=== PATIENT | male | born 1975 | race Caucasian/White ===

== ENCOUNTER 2021-01-07 19:27 | Inpatient (IN) ==
--- NOTE | 2021-01-07 19:47 | Emergency Department Note ---
SOB HPI General Chief Complaint: Shortness of Breath/Dyspnea Stated Complaint: SOB, covid exposure Time Seen by Provider: 01/07/21 19:31 Source: patient Mode of arrival: ambulatory Limitations: no limitations History of Present Illness HPI Narrative: Narrative: 45 yo M w/ h/o sarcoidosis on 10mg prednisone daily chronically p/w SOB. He reports that he has had increasing SOB since , assoc'd w/ an occasional dry cough. He has not noted any CP, peripheral edema. No recent travel other than to [place], no immobilization. While he has dealt with sarcoidosis chronically, he has never felt like this in the past. He denies F/C, body aches, N/V/D. He is fully vaccinated against COVID19, but has been exposed to many people at work who have it. Related Data Home Medications Medication Instructions Recorded Confirmed eszopiclone 3 mg tablet 3 mg PO QHS 05/30/15 01/07/21 omega-3 fatty acids 1,000 mg 1,000 mg PO QDAY 05/30/15 01/07/21 capsule duloxetine 90 mg PO QHS 11/02/15 01/07/21 cholecalciferol (vitamin D3) 50 2,000 unit PO QDAY 03/10/18 01/07/21 mcg (2,000 unit) capsule omeprazole 20 mg tablet,delayed 20 mg PO QDAY 07/23/18 01/07/21 release pregabalin 150 mg capsule 375 mg PO BID 08/11/18 01/07/21 risperidone 0.5 mg tablet 1 mg PO QHS 05/26/19 01/07/21 risperidone 0.5 mg tablet 2 mg PO BID tab 05/26/19 01/07/21 allopurinol 300 mg PO QDAY 01/07/21 01/07/21 amitriptyline 25 mg PO BID 01/07/21 01/07/21 hydrocodone-acetaminophen [[place]] 1 tab PO TID 01/07/21 01/07/21 methylphenidate HCl [[place]] 36 mg PO QAM 01/07/21 01/07/21 prednisone 10 mg PO QDAY 01/07/21 01/07/21 Previous Rx's Medication Instructions Recorded alendronate 70 mg tablet 70 mg PO QWEEK #14 tab 12/25/18 Allergies Allergy/AdvReac Type Severity Reaction Status Date / Time No Known Drug Allergies Allergy Verified 01/07/21 19:30 Review of Systems ROS ROS Narrative: Narrative: All systems ED: reviewed and negative except as stated. [facility] Narrative Patient History Narrative: Narrative: Medical/Surgical/Family History All Active Problems (Updated 01/08/21 @ 01:40 by Elliot Kelly MD) Acute dyspnea (Acute) Sarcoidosis (Acute) COVID-19 (Acute) Cardiomegaly (Acute) Hyponatremia (Acute) Pleural condition (Chronic) Chest pain (Acute) Diaphoresis (Acute) Sepsis (Acute) Hypoxemia (Chronic) Pain of left thumb (Chronic) Well adult exam (Chronic) Abnormal liver enzymes (Chronic) Other tenosynovitis of hand and wrist (Chronic) Reticulocytosis (Chronic) Pain in both feet (Chronic) Numbness and tingling of both lower extremities (Chronic) Urinary frequency (Chronic) Back pain (Chronic) Chronic cough (Chronic) Rhinorrhea (Chronic) Sore throat (Chronic) Double vision (Chronic) Weight loss (Chronic) Anorexia (Chronic) Hepatosplenomegaly (Chronic) Carpal tunnel syndrome (Chronic) Foot joint instability (Chronic) Sarcoidosis of lung (Chronic) Other instability, left foot (Chronic) Osteopenia (Chronic) Osteoporosis (Chronic) Plantar fasciitis (Chronic) Other synovitis and tenosynovitis, left hand (Chronic) Fatigue (Chronic) Pain in left finger(s) (Chronic) Umbilical pain (Chronic) Dyspnea (Chronic) Murmur, cardiac (Chronic) Decreased testosterone level (Chronic) Anger reaction (Chronic) Acute pain of left foot (Chronic) Thrombocytopenia (Chronic) Neuropathy, lumbosacral (radicular) (Chronic) Neuropathy (Chronic) Neurogenic claudication (Chronic) Lumbar spondylitis (Chronic) Leukopenia (Chronic) Hepatitis (Chronic) History of sinus surgery (Chronic) Sinusitis (Chronic) Disease of nasal cavity and sinuses (Chronic) Anxiety and depression (Chronic) Insomnia (Chronic) Lumbar back pain (Chronic) Abnormal serum enzyme level (Chronic) Chronic rhinitis (Chronic) GERD (gastroesophageal reflux disease) (Chronic) Antineoplastic chemotherapy induced pancytopenia (Chronic) Pancytopenia (Chronic) Splenomegaly (Chronic) Interstitial lung disease (Chronic) Shortness of breath (Chronic) Sarcoidosis (Chronic) Hypertriglyceridemia (Chronic) Parotitis (Chronic) Clostridium difficile colitis (Chronic) Neck pain (Chronic) Abdominal pain (Chronic) Paresthesia (Chronic) Skin tag (Chronic) Peripheral neuropathy (Chronic) Medical History (Updated 01/08/21 @ 01:40 by Elliot Kelly MD) Abdominal pain Abnormal liver enzymes Abnormal serum enzyme level Absent serum haptoglobin Acute pain of left foot Anger reaction Anorexia Antineoplastic chemotherapy induced pancytopenia Anxiety and depression Back pain Carpal tunnel syndrome Chronic cough Chronic rhinitis Clostridium difficile colitis Decreased testosterone level Disease of nasal cavity and sinuses Double vision Dyspnea Fatigue Foot joint instability GERD (gastroesophageal reflux disease) Hepatitis Hepatosplenomegaly Hypertriglyceridemia Hypoxemia Insomnia Interstitial lung disease Leukopenia Lumbar back pain Lumbar spondylitis MRSA pneumonia Murmur, cardiac Neck pain Neurogenic claudication Neuropathy Neuropathy, lumbosacral (radicular) Numbness and tingling of both lower extremities Osteopenia Osteoporosis Other instability, left foot Other synovitis and tenosynovitis, left hand Other tenosynovitis of hand and wrist Pain in both feet Pain in left finger(s) Pain of left thumb Pancytopenia Paresthesia Parotitis right Peripheral neuropathy Plantar fasciitis Pleural condition Reticulocytosis Rhinorrhea Sarcoidosis Sarcoidosis of lung Shortness of breath Sinusitis Skin tag Sore throat Splenomegaly Thrombocytopenia Umbilical pain Urinary frequency Weight loss Well adult exam Surgical History History of carpal tunnel release History of sinus surgery X2 unsucessful History of umbilical hernia repair Status post bronchoscopy with biopsy Family History Mother Diabetes mellitus Father Glaucoma Heart disease Social History Smoking Status: Never smoker Alcohol Intake Frequency: holiday/special occasion only Substance Use: does not use Exam Narrative Narrative: Narrative: General Limitations: no limitations General appearance: Present alert and in no apparent distress Head Head: Present atraumatic and normocephalic Eye Eye: Present normal appearance ENT ENT: Present other (O2 face mask in place) Neck Neck: Present normal inspection Chest Chest: Present normal inspection and symmetric chest wall rise Respiratory Respiratory: Present normal lung sounds bilaterally; Absent respiratory distress, rales/crackles, wheezes and stridor Cardiovascular Cardiovascular: Present regular rate, normal rhythm, +S1, +S2 and other (2+ B/L radial pulses); Absent systolic murmur and diastolic murmur Adbominal Abdominal: Present soft and normal bowel sounds; Absent distention and tenderness Extremities Extremities: Absent pedal edema Neurological Neurological: Present alert and oriented X3 Psychiatric Psychiatric: Present normal affect Skin Skin: Present warm (WNL) and dry Course Vital Signs Vital signs: Vital Signs Temperature 98.5 F 01/07/21 19:27 Pulse Rate 99 H 01/07/21 19:27 Respiratory Rate 22 01/07/21 19:27 Pulse Oximetry (%) 95 01/07/21 19:27 Temperature 98.7 F 01/07/21 23:55 Pulse Rate 84 01/08/21 01:01 Respiratory Rate 22 01/08/21 01:01 Blood Pressure 131/91 01/08/21 01:01 Pulse Oximetry (%) 95 01/08/21 01:01 MDM MDM Narrative Medical decision making narrative: Narrative: 45 yo M w/ h/o sarcoidosis on 10mg QD prednisone p/w SOB, and arrives w/ RA SaO2 in the 70s. DDx - COVID19, PE, PNA, sarcoidosis flare, CHF/myocarditis He presented in NAD, but w/ RA sats in the 70s, c/w a COVID happy hypoxic presentation. He was immediately started on supplemental O2 that was titrated up to 10L NRB to maintain sats in the 90s. His CXR showed cardiomegaly, interstitial disease, and B/L fluffy infiltrates suggestive of COVID19, which was then confirmed w/ a rapid swab. I d/w Dr Fitch, his office support clerk, who stated that pt had never had any cardiomegaly issues in the past. He agreed that a dose of 6mg dex was ideal, and stated that we should consider T/F to a facility that had inpt pulmonology. We began calling to find a hospital w/ a office support clerk and bed availability. I was finally able to speak w/ Dr Edson moody at [facility] in [place] and the hospitalist who did not feel that pulmonary services were not required as the only Tx option would be steroids and oxygen. They felt that local admission would be acceptable and he would need at most an auto wrecker, not a office support clerk, if he had any decompensation. By this point, pt had been titrated down to 1L and I felt that T/F for ICU care would not be required. I d/w the hospitalist and informed him of the discussions I had w/ pulmonolgy here and in [place], and let him know of the need for the pt to have an ECHO as well. He was agreeable to local admission. He requested that I give a dose of remdesivir. I d/w the pt and informed him of R/B/A and he wished to proceed w/ the medication. Lab Data Result diagrams: 01/07/21 19:45 01/07/21 19:45 Labs: Lab Results 01/07/21 01/07/21 01/07/21 Range/Units 19:45 19:45 19:45 WBC 2.3 L (4.5-11.0) K/mcL RBC 6.22 H (4.63-6.08) M/mcL Hgb 16.9 (13.7-17.5) g/dL Hct 53.5 H (40.1-51.0) % MCV 86.0 (80.0-100.0) fL MCH 27.2 (26.0-34.0) pg MCHC 31.6 (31.0-36.0) g/dL RDW 18.3 H (11.5-14.5) % Plt Count 79 L (140-440) K/mcL MPV (7.4-10.4) fL Neut % (Auto) 69.1 (38.0-78.0) % Lymph % (Auto) 20.9 (15.5-49.0) % [place] % (Auto) 9.6 (1.0-12.0) % Eos % (Auto) 0 (0.0-7.0) % Baso % (Auto) 0.4 (0.0-2.0) % Lymph # (Auto) 0.48 L (1.50-4.80) K/mcL [place] # (Auto) 0.22 (0.10-0.90) K/mcL Eos # (Auto) 0 (0.00-0.70) K/mcL Baso # (Auto) 0.01 (0.00-0.30) K/mcL Absolute Neutrophils 1.59 L (1.80-8.00) K/mcL ABG Methemoglobin (0.4-1.5) % VBG pH (7.32-7.42) U VBG pCO2 (41.0-51.0) mmHg VBG pO2 (25.0-40.0) mmHg VBG HCO3 (24.0-28.0) mmol/L VBG Total CO2 (25.0-29.0) mmol/L VBG O2 Saturation (40.0-70.0) % VBG Base Excess (-2-3) VBG Lactic Acid (0.5-2.0) mmol/L Carboxyhemoglobin (0.0-1.5) % THgb Total Hemoglobin (13.5-16.5) gm/Dl Sodium 131 L (133-145) mmol/L Potassium 3.9 (3.3-5.1) mmol/L Chloride 92 L (96-108) mmol/L Carbon Dioxide 24 (22-30) mmol/L Anion Gap 15.0 (8.0-16.0) BUN 13 (6-20) mg/dL Creatinine 1.4 H (0.7-1.2) mg/dL GFR Calculation 59 Glucose 92 (70-105) mg/dL Calcium 9.5 (8.6-10.4) mg/dL Total Bilirubin 0.7 (0.1-1.0) mg/dL AST 69 H (<40) U/L ALT 55 H (<40) U/L Alkaline Phosphatase 132 H (39-117) U/L CK-MB (CK-2) 3.7 (<6.7) ng/mL Troponin T (<0.03) ng/mL NT-Pro-B Natriuret Pep 65.9 (<125.0) pg/mL Total Protein 7.7 (5.9-8.4) gm/dL Albumin 4.3 (3.2-5.2) gm/dL Globulin 3.4 (2.2-3.7) gm/dL Albumin/Globulin Ratio 1.3 (1.0-2.3) 01/07/21 01/07/21 01/07/21 Range/Units 19:45 19:56 20:18 WBC (4.5-11.0) K/mcL RBC (4.63-6.08) M/mcL Hgb (13.7-17.5) g/dL Hct (40.1-51.0) % MCV (80.0-100.0) fL MCH (26.0-34.0) pg MCHC (31.0-36.0) g/dL RDW (11.5-14.5) % Plt Count (140-440) K/mcL MPV (7.4-10.4) fL Neut % (Auto) (38.0-78.0) % Lymph % (Auto) (15.5-49.0) % [place] % (Auto) (1.0-12.0) % Eos % (Auto) (0.0-7.0) % Baso % (Auto) (0.0-2.0) % Lymph # (Auto) (1.50-4.80) K/mcL [place] # (Auto) (0.10-0.90) K/mcL Eos # (Auto) (0.00-0.70) K/mcL Baso # (Auto) (0.00-0.30) K/mcL Absolute Neutrophils (1.80-8.00) K/mcL ABG Methemoglobin 0.1 L (0.4-1.5) % VBG pH 7.43 H (7.32-7.42) U VBG pCO2 39.4 L (41.0-51.0) mmHg VBG pO2 46.6 H (25.0-40.0) mmHg VBG HCO3 25.3 (24.0-28.0) mmol/L VBG Total CO2 26.5 (25.0-29.0) mmol/L VBG O2 Saturation 77.5 H (40.0-70.0) % VBG Base Excess 1 (-2-3) VBG Lactic Acid 1.2 (0.5-2.0) mmol/L Carboxyhemoglobin 6.1 H (0.0-1.5) % THgb Total Hemoglobin 15.8 (13.5-16.5) gm/Dl Sodium (133-145) mmol/L Potassium (3.3-5.1) mmol/L Chloride (96-108) mmol/L Carbon Dioxide (22-30) mmol/L Anion Gap (8.0-16.0) BUN (6-20) mg/dL Creatinine (0.7-1.2) mg/dL GFR Calculation Glucose (70-105) mg/dL Calcium (8.6-10.4) mg/dL Total Bilirubin (0.1-1.0) mg/dL AST (<40) U/L ALT (<40) U/L Alkaline Phosphatase (39-117) U/L CK-MB (CK-2) (<6.7) ng/mL Troponin T < 0.01 (<0.03) ng/mL NT-Pro-B Natriuret Pep (<125.0) pg/mL Total Protein (5.9-8.4) gm/dL Albumin (3.2-5.2) gm/dL Globulin (2.2-3.7) gm/dL Albumin/Globulin Ratio (1.0-2.3) ED POC Tests ED POC Tests: NGOZI - SARS Antigen Positive CC TIME Critical Care Time Total Critical Care Time: 45 Attestation: The very real possibility of disability or existed without emergent intervention. Organ systems at risk included CVS, pulmonary, FILAMENT TESTER. Interventions included O2 supplementation, steroids, specialty consultation. No procedures were required. Discharge Plan Patient/Caregiver Discharge Instructions Pt seen by SUPERVISOR PICKING CREW/PA only: No Clinical Impression: Acute dyspnea, Sarcoidosis, COVID-19, Cardiomegaly, Hyponatremia Patient Disposition: Xfer As Inpt ([facility]) Condition: Fair Discharge Date/Time: 01/07/21 23:45 Discharge Location: [facility]
[2021-01-07 20:39] LABS: ABG Methemoglobin 0.1 % (0.4-1.5); Total Hemoglobin 15.8 gm/Dl (13.5-16.5); VBG Base Excess 1 (-2-3); VBG HCO3 25.3 mmol/L (24.0-28.0); VBG Oxygen Saturation 77.5 % (40.0-70.0); VBG PCO2 39.4 mmHg (41.0-51.0); VBG PH 7.43 U (7.32-7.42); VBG PO2 46.6 mmHg (25.0-40.0); VBG Total CO2 26.5 mmol/L (25.0-29.0)
[2021-01-07 21:06] LABS: ALT/SGPT 55 U/L (<40); AST/SGOT 69 U/L (<40); Albumin 4.3 gm/dL (3.2-5.2); Albumin/Globulin Ratio 1.3 (1.0-2.3); Alkaline Phosphatase 132 U/L (39-117); Bilirubin,Total 0.7 mg/dL (0.1-1.0); Blood Urea Nitrogen 13 mg/dL (6-20); Calcium 9.5 mg/dL (8.6-10.4); Carbon Dioxide 24 mmol/L (22-30); Chloride 92 mmol/L (96-108); Globulin 3.4 gm/dL (2.2-3.7); Glomerular Filtration Rate 59; Glucose 92 mg/dL (70-105)
[2021-01-07 21:16] LABS: Basophils # (Auto) 0.01 K/mcL (0.00-0.30); Basophils % (Auto) 0.4 % (0.0-2.0); Eosinophils # (Auto) 0 K/mcL (0.00-0.70); Eosinophils % (Auto) 0 % (0.0-7.0); Hematocrit 53.5 % (40.1-51.0); Hemoglobin 16.9 g/dL (13.7-17.5); Lymphocytes # (Auto) 0.48 K/mcL (1.50-4.80); Lymphocytes % (Auto) 20.9 % (15.5-49.0); Mean Corpuscular HGB Conc 31.6 g/dL (31.0-36.0); Monocytes # (Auto) 0.22 K/mcL (0.10-0.90); Monocytes % (Auto) 9.6 % (1.0-12.0); Neutrophils % (Auto) 69.1 % (38.0-78.0); Platelet Count 79 K/mcL (140-440); RBC 6.22 M/mcL (4.63-6.08); Red Cell Distribution Width 18.3 % (11.5-14.5); WBC 2.3 K/mcL (4.5-11.0)
[2021-01-07] MEDS ORDERED: DEXAMETHASONE 10 MG/ML VIAL IV ONE (21:33)
[2021-01-07 22:40] LABS: Creatine Kinase MB 3.7 ng/mL (<6.7); proBNP 65.9 pg/mL (<125.0)
[2021-01-07] MEDS ORDERED: REMDESIVIR 200 MG in 0.9 % SODIUM CHLORIDE 250 ML IV ONE (23:04)
[2021-01-08] MEDS: 0.9 % SODIUM CHLORIDE 10 ML SYRINGE IV SCH ×8 (00:10→22:00)
--- NOTE | 2021-01-08 06:19 | XRay Report ---
CLINICAL INFORMATION: sob, hypoxia. History of sarcoidosis COMPARISON: 11/09/2018 FINDINGS: The heart is equivocally enlarged, but accentuated by portable technique, suboptimal inspiratory result, lordotic positioning and left rotation. Mild mediastinal widening and mild bilateral hilar enlargement could indicate recurrent adenopathy. Pulmonary vasculature is normal. Moderate interstitial disease has progressed in both mid and lower lungs. No effusions IMPRESSION: Mild hilar enlargement and mediastinal widening which suspect represents adenopathy-possibly related recurrent sarcoidosis. Moderate interstitial disease in both mid and lower lungs has progressed which could indicate inflammation related to sarcoidosis or superimposed infection. Consider chest CT for more specific evaluation. Interpreted and Authenticated by: Camilo Rodriguez 01/08/21
--- NOTE | 2021-01-08 08:10 | Internal Med History&Physical ---
HPI History of Present Illness Patient information: Note initiated : 01/08/21 at 7:57 am Service Date, if different from initiated Date: [] Patient: Raleigh Grant a 45 y/o M admitted on 01/07/21 for SOB, covid exposure. Chief Complaint: [] History of present illness: Mr. Grant is a 45 year old M [facility] ED with sore throat runny nose shortness of breath and multiple Covid exposures at work. Patient is fully vaccinated as of July. Patient complains of fevers and chills. States that started feeling like a head cold on and had Saturday just got worse with increased shortness of breath. Has occasional cough. Patient has chronic shortness of breath from sarcoidosis and typically runs low 90s and sometimes with exertion will drop in the 80s but comes back up quickly. triage was 60% placed on 6 L oxygen mask and subsequently 10 L nonrebreather. Not long after that is weaned down to 2 L oxygen mask. Case was discussed with guide alpine at [facility] given the sarcoidosis comorbidity he stated that there will be no change in treatment given his underlying sarcoidosis and to treat Covid as usual. Labs are notable for chronic leukopenia and thrombocytopenia lactate within normal. Mild hyponatremia. mild transaminitis chronic review of Systems: Pertinent positives as above. denies headache/fever/chills/nausea/vomiting/chest or abdominal pain/diarrhea. remaining 10 point review of system reviewed negative PFSH PFSH All Active Problems (Updated 01/08/21 @ 01:40 by Elliot Kelly MD) Acute dyspnea (Acute) Sarcoidosis (Acute) COVID-19 (Acute) Cardiomegaly (Acute) Hyponatremia (Acute) Pleural condition (Chronic) Chest pain (Acute) Diaphoresis (Acute) Sepsis (Acute) Hypoxemia (Chronic) Pain of left thumb (Chronic) Well adult exam (Chronic) Abnormal liver enzymes (Chronic) Other tenosynovitis of hand and wrist (Chronic) Reticulocytosis (Chronic) Pain in both feet (Chronic) Numbness and tingling of both lower extremities (Chronic) Urinary frequency (Chronic) Back pain (Chronic) Chronic cough (Chronic) Rhinorrhea (Chronic) Sore throat (Chronic) Double vision (Chronic) Weight loss (Chronic) Anorexia (Chronic) Hepatosplenomegaly (Chronic) Carpal tunnel syndrome (Chronic) Foot joint instability (Chronic) Sarcoidosis of lung (Chronic) Other instability, left foot (Chronic) Osteopenia (Chronic) Osteoporosis (Chronic) Plantar fasciitis (Chronic) Other synovitis and tenosynovitis, left hand (Chronic) Fatigue (Chronic) Pain in left finger(s) (Chronic) Umbilical pain (Chronic) Dyspnea (Chronic) Murmur, cardiac (Chronic) Decreased testosterone level (Chronic) Anger reaction (Chronic) Acute pain of left foot (Chronic) Thrombocytopenia (Chronic) Neuropathy, lumbosacral (radicular) (Chronic) Neuropathy (Chronic) Neurogenic claudication (Chronic) Lumbar spondylitis (Chronic) Leukopenia (Chronic) Hepatitis (Chronic) History of sinus surgery (Chronic) Sinusitis (Chronic) Disease of nasal cavity and sinuses (Chronic) Anxiety and depression (Chronic) Insomnia (Chronic) Lumbar back pain (Chronic) Abnormal serum enzyme level (Chronic) Chronic rhinitis (Chronic) GERD (gastroesophageal reflux disease) (Chronic) Antineoplastic chemotherapy induced pancytopenia (Chronic) Pancytopenia (Chronic) Splenomegaly (Chronic) Interstitial lung disease (Chronic) Shortness of breath (Chronic) Sarcoidosis (Chronic) Hypertriglyceridemia (Chronic) Parotitis (Chronic) Clostridium difficile colitis (Chronic) Neck pain (Chronic) Abdominal pain (Chronic) Paresthesia (Chronic) Skin tag (Chronic) Peripheral neuropathy (Chronic) Medical History (Updated 01/08/21 @ 01:40 by Elliot Kelly MD) Abdominal pain Abnormal liver enzymes Abnormal serum enzyme level Absent serum haptoglobin Acute pain of left foot Anger reaction Anorexia Antineoplastic chemotherapy induced pancytopenia Anxiety and depression Back pain Carpal tunnel syndrome Chronic cough Chronic rhinitis Clostridium difficile colitis Decreased testosterone level Disease of nasal cavity and sinuses Double vision Dyspnea Fatigue Foot joint instability GERD (gastroesophageal reflux disease) Hepatitis Hepatosplenomegaly Hypertriglyceridemia Hypoxemia Insomnia Interstitial lung disease Leukopenia Lumbar back pain Lumbar spondylitis MRSA pneumonia Murmur, cardiac Neck pain Neurogenic claudication Neuropathy Neuropathy, lumbosacral (radicular) Numbness and tingling of both lower extremities Osteopenia Osteoporosis Other instability, left foot Other synovitis and tenosynovitis, left hand Other tenosynovitis of hand and wrist Pain in both feet Pain in left finger(s) Pain of left thumb Pancytopenia Paresthesia Parotitis right Peripheral neuropathy Plantar fasciitis Pleural condition Reticulocytosis Rhinorrhea Sarcoidosis Sarcoidosis of lung Shortness of breath Sinusitis Skin tag Sore throat Splenomegaly Thrombocytopenia Umbilical pain Urinary frequency Weight loss Well adult exam Surgical History History of carpal tunnel release History of sinus surgery X2 unsucessful History of umbilical hernia repair Status post bronchoscopy with biopsy Family History Mother Diabetes mellitus Father Glaucoma Heart disease Social History (Updated 05/26/19 @ 15:22 by Erik Fitch MD) marital status: single occupational status: employed alcohol intake frequency: holiday/special occasion only substance use type: does not use MEDS/ALLERGIES Home Medications and Allergies Home Medications Medication Instructions Recorded Confirmed Type eszopiclone 3 mg tablet 3 mg PO QHS 05/30/15 01/07/21 History omega-3 fatty acids 1,000 mg 1,000 mg PO QDAY 05/30/15 01/07/21 History capsule duloxetine 90 mg PO QHS 11/02/15 01/07/21 History cholecalciferol (vitamin D3) 50 2,000 unit PO QDAY 03/10/18 01/07/21 History mcg (2,000 unit) capsule omeprazole 20 mg tablet,delayed 20 mg PO QDAY 07/23/18 01/07/21 History release pregabalin 150 mg capsule 225 mg PO BID 08/11/18 01/08/21 History alendronate 70 mg tablet 70 mg PO QWEEK #14 tab 12/25/18 01/07/21 Rx risperidone 0.5 mg tablet 0.5 mg PO QHS 05/26/19 01/08/21 History risperidone 0.5 mg tablet 1 mg PO BID tab 05/26/19 01/08/21 History allopurinol 300 mg PO QDAY 01/07/21 01/07/21 History amitriptyline 25 mg PO BID 01/07/21 01/07/21 History hydrocodone-acetaminophen [[place]] 1 tab PO TID 01/07/21 01/07/21 History methylphenidate HCl [[place]] 36 mg PO QAM 01/07/21 01/07/21 History prednisone 10 mg PO QDAY 01/07/21 01/07/21 History Allergies Allergy/AdvReac Type Severity Reaction Status Date / Time No Known Drug Allergies Allergy Verified 01/07/21 19:30 EXAM Constitutional Vitals: Temp Pulse Resp BP Pulse Ox 98.4 F 70 24 H 128/81 96 01/08/21 04:01 01/08/21 04:01 01/08/21 04:01 01/08/21 04:01 01/08/21 04:01 Exam: General: Alert, Awake, No acute Distress Eyes/N/T: EOMI, Head/Neck: neck supple, CV: RRR, No murmurs, Pulm: mild fine rales b/l, no wheezing/rhonchi/rales Abd: soft, nontender, +BS x4 Ext: no clubbing/cyanosis/edema Neuro: Alert, no focal deficits, moves all extremities, Skin: warm/dry DATA Data Completed and Pending Labs: Labs from last 24 hours 01/07/21 01/07/21 01/07/21 20:18 19:56 19:45 WBC RBC Hgb Hct MCV MCH MCHC RDW Plt Count MPV Neut % (Auto) Lymph % (Auto) [place] % (Auto) Eos % (Auto) Baso % (Auto) Lymph # (Auto) [place] # (Auto) Eos # (Auto) Baso # (Auto) Absolute Neutrophils ABG Methemoglobin 0.1 L VBG pH 7.43 H VBG pCO2 39.4 L VBG pO2 46.6 H VBG HCO3 25.3 VBG Total CO2 26.5 VBG O2 Saturation 77.5 H VBG Base Excess 1 VBG Lactic Acid 1.2 Carboxyhemoglobin 6.1 H Total Hemoglobin 15.8 Sodium Potassium Chloride Carbon Dioxide Anion Gap BUN Creatinine GFR Calculation Glucose Calcium Total Bilirubin AST ALT Alkaline Phosphatase CK-MB (CK-2) Troponin T < 0.01 NT-Pro-B Natriuret Pep Total Protein Albumin Globulin Albumin/Globulin Ratio 01/07/21 01/07/21 01/07/21 19:45 19:45 19:45 WBC 2.3 L RBC 6.22 H Hgb 16.9 Hct 53.5 H MCV 86.0 MCH 27.2 MCHC 31.6 RDW 18.3 H Plt Count 79 L MPV Neut % (Auto) 69.1 Lymph % (Auto) 20.9 [place] % (Auto) 9.6 Eos % (Auto) 0 Baso % (Auto) 0.4 Lymph # (Auto) 0.48 L [place] # (Auto) 0.22 Eos # (Auto) 0 Baso # (Auto) 0.01 Absolute Neutrophils 1.59 L ABG Methemoglobin VBG pH VBG pCO2 VBG pO2 VBG HCO3 VBG Total CO2 VBG O2 Saturation VBG Base Excess VBG Lactic Acid Carboxyhemoglobin Total Hemoglobin Sodium 131 L Potassium 3.9 Chloride 92 L Carbon Dioxide 24 Anion Gap 15.0 BUN 13 Creatinine 1.4 H GFR Calculation 59 Glucose 92 Calcium 9.5 Total Bilirubin 0.7 AST 69 H ALT 55 H Alkaline Phosphatase 132 H CK-MB (CK-2) 3.7 Troponin T NT-Pro-B Natriuret Pep 65.9 Total Protein 7.7 Albumin 4.3 Globulin 3.4 Albumin/Globulin Ratio 1.3 A/P Narrative A/P Narrative: A: *Covid PNA superimposed on sarcoidosis: -was vaccinated 2nd dose on *Acute on chronic hypoxic respite failure: -on 2L oxymask *Sarcoidosis: Follows with Dr. Fitch -on prednisone *Hyponatremia: *Leukopenia, chronic: *Thrombocytopenia, chronic *CKD III: *Transaminitis mild, chronic *Depression/anxiety: *GERD: P: -Rem/Dex -f/u CRP -O2 supp and wean as able, likely will need home O2 -Proning/mobilization/oob to chair -IS/Acapella, prn nebs -ppx: lovenox (hold for plt<50k) full code Time Spent With Patient Time: Total time spent is greater than 50% in coordination of care (as documented) at patient's floor/unit and/or counseling patient: QUALITY Stroke Symptom Onset Unknown: No VTE Deep Vein Thrombosis/Pulmonary Embolism Present on Admission: No
[2021-01-08] MEDS ORDERED: HYDROcodone/APAP 5/325MG TABLET PO PRN (08:32)
[2021-01-08] MEDS: PREGABALIN 75 MG CAPSULE PO SCH ×2 (09:13→20:57)
[2021-01-08] MEDS: ALLOPURINOL 300 MG TABLET PO SCH (09:13)
[2021-01-08] MEDS: AMITRIPTYLINE 25 MG TABLET PO SCH ×2 (09:13→20:56)
[2021-01-08] MEDS: OMEPRAZOLE 20 MG CAPSULE PO SCH (09:13)
[2021-01-08] MEDS: predniSONE 10 MG TABLET PO SCH (09:13)
[2021-01-08] MEDS: METHYLPHENIDATE HCL 36 MG PO SCH (09:13)
[2021-01-08] MEDS: risperiDONE 1 MG TABLET PO SCH ×3 (09:13→20:57)
[2021-01-08] MEDS ORDERED: POLYETHYLENE GLYCOL 3350 17 GM PACKET PO PRN (11:07)
[2021-01-08] MEDS ORDERED: POTASSIUM CHLORIDE 40 MEQ in DEXTROSE 5% IN WATER 500 ML IV PRN (11:07)
[2021-01-08] MEDS ORDERED: LACTULOSE 20 GM/30 ML ORAL.SOL PO PRN (11:07)
[2021-01-08] MEDS ORDERED: POTASSIUM CHLORIDE 20 MEQ TABLET PO PRN ×2 (11:07)
[2021-01-08] MEDS ORDERED: ACETAMINOPHEN 325 MG TABLET PO PRN (11:07)
[2021-01-08] MEDS ORDERED: SENNOSIDES 1 TABLET PO PRN (11:07)
[2021-01-08] MEDS ORDERED: MAGNESIUM SULFATE 2 GM/50 ML BAG IV PRN (11:07)
[2021-01-08] MEDS ORDERED: ONDANSETRON 4 MG/2 ML VIAL IV PRN (11:07)
[2021-01-08] MEDS ORDERED: IPRATROPIUM/ALBUTEROL 3 ML AMPUL.NEB NEB PRN (11:07)
[2021-01-08] MEDS: DEXAMETHASONE 4 MG TABLET PO SCH (12:30)
[2021-01-08] MEDS: ENOXAPARIN 40 MG/0.4 ML SYRINGE SQ SCH (12:31)
[2021-01-08] MEDS: REMDESIVIR 100 MG in 0.9 % SODIUM CHLORIDE 250 ML IV SCH (16:09)
[2021-01-08] MEDS: ZOLPIDEM 5 MG TABLET PO SCH (20:56)
[2021-01-08] MEDS: DULoxetine 30 MG CAPSULE PO SCH (20:57)
[2021-01-09] MEDS: 0.9 % SODIUM CHLORIDE 10 ML SYRINGE IV SCH ×4 (05:05→20:00)
[2021-01-09 06:49] LABS: Hematocrit 50.7 % (40.1-51.0); Hemoglobin 15.6 g/dL (13.7-17.5); Mean Corpuscular HGB Conc 30.8 g/dL (31.0-36.0); Platelet Count 89 K/mcL (140-440); RBC 5.76 M/mcL (4.63-6.08); Red Cell Distribution Width 17.5 % (11.5-14.5); WBC 2.8 K/mcL (4.5-11.0)
[2021-01-09 06:55] LABS: ALT/SGPT 46 U/L (<40); AST/SGOT 55 U/L (<40); Albumin 3.8 gm/dL (3.2-5.2); Albumin/Globulin Ratio 1.3 (1.0-2.3); Alkaline Phosphatase 114 U/L (39-117); Bilirubin,Direct 0.2 mg/dL (<0.3); Bilirubin,Total 0.5 mg/dL (0.1-1.0); Blood Urea Nitrogen 21 mg/dL (6-20); Calcium 9.2 mg/dL (8.6-10.4); Carbon Dioxide 23 mmol/L (22-30); Chloride 101 mmol/L (96-108); Globulin 2.9 gm/dL (2.2-3.7); Glomerular Filtration Rate 79; Glucose 126 mg/dL (70-105); Lactate Dehydrogenase 390 U/L (135-225); Phosphorous 4.3 mg/dL (2.5-4.5); Triglycerides 141 mg/dL (<150); Uric Acid 6.5 mg/dL (2.5-8.0)
--- NOTE | 2021-01-09 07:31 | Internal Med Progress Note ---
SUBJECTIVE Subjective Patient information: Note initiated : 01/09/21 at 7:28 am Service Date, if different from initiated Date: [] Patient: Raleigh Grant a 45 y/o M admitted on 01/07/21 for SOB, covid exposure. Chief Complaint: [] Interval history: History of present illness: Mr. Grant is a 45 year old M [facility] ED with sore throat runny nose shortness of breath and multiple Covid exposures at work. Patient is fully vaccinated as of July. Patient complains of fevers and chills. States that started feeling like a head cold on and had Saturday just got worse with increased shortness of breath. Has occasional cough. Patient has chronic shortness of breath from sarcoidosis and typically runs low 90s and sometimes with exertion will drop in the 80s but comes back up quickly. triage was 60% placed on 6 L oxygen mask and subsequently 10 L nonrebreather. Not long after that is weaned down to 2 L oxygen mask. Case was discussed with career guidance counselor at [facility] given the sarcoidosis comorbidity he stated that there will be no change in treatment given his underlying sarcoidosis and to treat Covid as usual. Labs are notable for chronic leukopenia and thrombocytopenia lactate within normal. Mild hyponatremia. mild transaminitis chronic / Patient doing well. Is minimal cough. Minimal shortness of breath. He is down to 0.5 to 1 L nasal cannula. Review of Systems: denies headache/fever/chills/nausea/vomiting/chest or abdominal pain/diarrhea. Otherwise see above. Constitutional Vitals: Vital Signs Temp Pulse Resp BP Pulse Ox 97.8 F 63 18 120/86 93 01/09/21 04:01 01/09/21 04:01 01/09/21 04:01 01/09/21 04:01 01/09/21 04:01 Period Temp Pulse Resp BP Sys/Medel Pulse Ox Last 24 Hr 97 F-98.5 F 55-72 18-24 119-138/85-94 92-98 Intake and Output 01/08/21 01/09/21 01/09/21 21:59 05:59 13:59 Intake Total 970 240 Output Total 500 650 Balance 470 -410 Weight 88.587 kg 87.317 kg Intake & Output: Intake & Output 01/08/21 01/09/21 01/09/21 21:59 05:59 13:59 Intake Total 970 240 Output Total 500 650 Balance 470 -410 Weight 88.587 kg 87.317 kg Intake: IV 250 Veklury 100 mg In Sodium 250 Chloride 0.9% 250 ml @ 500 mls/ hr IV Q24H [facility] Rx#:[id number] Oral 720 240 Output: Void Amount 500 650 Other: Meal Dinner Percent of Meal Consumed 100% Feeding Ability Independent Urine Appearance Clear Clear Urine Color Bright Yellow Bright Yellow Urine Odor Normal Normal Exam: General: Alert, Awake, No acute Distress Eyes/N/T: EOMI, Head/Neck: neck supple, CV: RRR, No murmurs, Pulm: mild fine rales b/l, no wheezing Abd: soft, nontender, +BS x4 Ext: no clubbing/cyanosis/edema Neuro: Alert, no focal deficits, moves all extremities, Skin: warm/dry OBJ DATA Labs CBC & Chem 7: 01/09/21 05:20 01/09/21 05:20 Labs: Abnormal Lab Results 01/09/21 01/09/21 01/09/21 05:21 05:20 05:20 WBC 2.8 L RBC Hct MCHC 30.8 L RDW 17.5 H Plt Count 89 L Lymph # (Auto) Absolute Neutrophils ABG Methemoglobin VBG pH VBG pCO2 VBG pO2 VBG O2 Saturation Carboxyhemoglobin Sodium Chloride BUN 21 H Creatinine Glucose 126 H GGT 180 H AST 55 H ALT 46 H Alkaline Phosphatase Lactate Dehydrogenase 390 H C-Reactive Protein 2.60 H 01/08/21 01/07/21 01/07/21 08:35 20:18 19:45 WBC RBC Hct MCHC RDW Plt Count Lymph # (Auto) Absolute Neutrophils ABG Methemoglobin 0.1 L VBG pH 7.43 H VBG pCO2 39.4 L VBG pO2 46.6 H VBG O2 Saturation 77.5 H Carboxyhemoglobin 6.1 H Sodium 131 L Chloride 92 L BUN Creatinine 1.4 H Glucose GGT AST 69 H ALT 55 H Alkaline Phosphatase 132 H Lactate Dehydrogenase C-Reactive Protein 5.50 H 01/07/21 19:45 WBC 2.3 L RBC 6.22 H Hct 53.5 H MCHC RDW 18.3 H Plt Count 79 L Lymph # (Auto) 0.48 L Absolute Neutrophils 1.59 L ABG Methemoglobin VBG pH VBG pCO2 VBG pO2 VBG O2 Saturation Carboxyhemoglobin Sodium Chloride BUN Creatinine Glucose GGT AST ALT Alkaline Phosphatase Lactate Dehydrogenase C-Reactive Protein Meds: Medications Acetaminophen (Acetaminophen 325 Mg Tablet) 650 mg PO Q6HP PRN PRN Reason: PAIN/FEVER > 101 Hydrocodone Bitart/Acetaminophen (Hydrocodone/Apap 5/325mg Tablet) 1 tab PO TIDP PRN PRN Reason: Pain Albuterol/Ipratropium (Ipratropium/Albuterol 3 Ml Ampul.Neb) 3 ml NEB Q4HP PRN PRN Reason: Shortness Of Breath Allopurinol (Allopurinol 300 Mg Tablet) 300 mg PO QDAY [facility] Last Admin: 01/08/21 09:13 Dose: 300 mg Documented by: Amitriptyline HCl (Amitriptyline 25 Mg Tablet) 25 mg PO BID [facility] Last Admin: 01/08/21 20:56 Dose: 25 mg Documented by: Dexamethasone (Dexamethasone 4 Mg Tablet) 6 mg PO DAILY [facility] Last Admin: 01/08/21 12:30 Dose: 6 mg Documented by: Duloxetine HCl (Duloxetine 30 Mg Capsule) 90 mg PO QHS [facility] Last Admin: 01/08/21 20:57 Dose: 90 mg Documented by: Enoxaparin Sodium (Enoxaparin 40 Mg/0.4 Ml Syringe) 40 mg SQ DAILY [facility] Last Admin: 01/08/21 12:31 Dose: 40 mg Documented by: Potassium Chloride 40 meq/ (Dextrose) 520 mls @ 130 mls/hr IV UD PRN PRN Reason: Potassium < 3 Magnesium Sulfate (Magnesium Sulfate) 2 gm in 50 mls @ 50 mls/hr IV UD PRN PRN Reason: Magnesium </= 1.6 REMDESIVIR 100 mg/ Sodium (Chloride) 250 mls @ 500 mls/hr IV Q24H [facility] Stop: 01/11/21 16:29 Last Infusion: 01/08/21 17:38 Dose: Infused Documented by: Lactulose (Lactulose 20 Gm/30 Ml Oral.Billie) 20 gm PO DAILYP PRN PRN Reason: Constipation Omeprazole (Omeprazole 20 Mg Capsule) 20 mg PO ACB [facility] Last Admin: 01/08/21 09:13 Dose: 20 mg Documented by: Ondansetron HCl (Ondansetron 4 Mg/2 Ml Vial) 4 mg IV Q4HP PRN PRN Reason: Nausea And Vomiting Methylphenidate Hcl [Concerta] 36 Mg Tablet Extended Release [facility] Last Admin: 01/08/21 09:13 Dose: Not Given Documented by: Pneumococcal Polyvalent Vaccine (Pneumococcal 23-Yani P-Sac Vac 0.5 Ml Syringe) 0.5 ml IM .ONCE ONE Stop: 01/09/21 10:01 Polyethylene Glycol (Polyethylene Glycol 3350 17 Gm Packet) 17 gm PO DAILYP PRN PRN Reason: Constipation Potassium Chloride (Potassium Chloride 20 Meq Tablet) 40 meq PO UD PRN PRN Reason: Potssium is 3-3.5 Potassium Chloride (Potassium Chloride 20 Meq Tablet) 40 meq PO UD PRN PRN Reason: Potassium < 3 Pred[facility]one ([facility] 10 Mg [facility]t) [facility] Admin: 01/08/21 09:13 Dose: 10 mg Documented by: Pregabalin (Pregabalin 75 Mg Capsule) 225 mg PO BID [facility] Last Admin: 01/08/21 20:57 Dose: 225 mg Documented by: Risperidone (Risperidone 1 Mg Tablet) 0.5 mg PO [facility] Last Admin: 01/08/21 20:57 Dose: 0.5 mg Documented by: Risperidone (Risperidone 1 Mg Tablet) 1 mg PO BID@0800,1200 [facility] Last Admin: 01/08/21 12:32 Dose: 1 mg Documented by: Senna (Sennosides 1 Tablet) 2 tab PO DAILYP PRN PRN Reason: Constipation Sodium Chloride (0.9 % Sodium Chloride 10 Ml Syringe) 10 ml IV Q8 [facility] Last Admin: 01/09/21 05:15 Dose: 10 ml Documented by: Sodium Chloride (0.9 % Sodium Chloride 10 Ml Syringe) 10 ml IV Q8 [facility] Last Admin: 01/09/21 05:05 Dose: Not Given Documented by: Zolpidem Tartrate (Zolpidem 5 Mg Tablet) 10 mg PO [facility] Last Admin: 01/08/21 20:56 Dose: 10 mg Documented by: ABG Interpretation ABG results: 01/07/21 20:18 ABG Methemoglobin 0.1 L VBG pH 7.43 H VBG pCO2 39.4 L VBG pO2 46.6 H VBG HCO3 25.3 VBG Total CO2 26.5 VBG O2 Saturation 77.5 H VBG Base Excess 1 A/P Narrative A/P Narrative: A: *Covid PNA superimposed on sarcoidosis: -was vaccinated in July, recently exposed to multiple co-workers with covid -CRP improved *Acute on chronic hypoxic respitorye failure: -on 1L oxymask *Sarcoidosis: Follows with Dr. Fitch -on prednisone *Hyponatremia: resolved *Leukopenia, chronic: *Thrombocytopenia, chronic *CKD III: *Transaminitis mild, chronic: *Depression/anxiety: *GERD: P: -Rem/Dex -f/u CRP -O2 supp and wean as able, likely will need home O2 -Proning/mobilization/oob to chair -IS/Acapella, prn nebs -ppx: lovenox (hold for plt<50k) full code Time Spent With Patient Time: Total time spent is greater than 50% in coordination of care (as documented) at patient's floor/unit and/or counseling patient: QUALITY Stroke Symptom Onset Unknown: No VTE Deep Vein Thrombosis/Pulmonary Embolism Present on Admission: No
[2021-01-09 07:49] LABS: Anisocytosis 2+ (None Seen); Band Neutrophils % 4 % (0-10); Lymphocytes % 11 % (15-49); Monocytes % (Manual) 5 % (1-12); Platelet Estimate DECREASED (Normal); RBC Morphology ABNORMAL (Normal); Reactive Lymphocytes 5 % (0-2); Segmented Neutrophils % 75 % (38-78)
[2021-01-09] MEDS: PREGABALIN 75 MG CAPSULE PO SCH ×2 (09:39→19:58)
[2021-01-09] MEDS: DEXAMETHASONE 4 MG TABLET PO SCH (09:39)
[2021-01-09] MEDS: OMEPRAZOLE 20 MG CAPSULE PO SCH (09:39)
[2021-01-09] MEDS: ALLOPURINOL 300 MG TABLET PO SCH (09:39)
[2021-01-09] MEDS: predniSONE 10 MG TABLET PO SCH (09:40)
[2021-01-09] MEDS: ENOXAPARIN 40 MG/0.4 ML SYRINGE SQ SCH (09:40)
[2021-01-09] MEDS: risperiDONE 1 MG TABLET PO SCH ×3 (09:40→19:59)
[2021-01-09] MEDS: AMITRIPTYLINE 25 MG TABLET PO SCH ×2 (09:40→19:59)
[2021-01-09] MEDS: METHYLPHENIDATE HCL 36 MG PO SCH (09:40)
[2021-01-09] MEDS ORDERED: PNEUMOCOCCAL 23-VAL P-SAC VAC 0.5 ML SYRINGE IM ONE (10:00)
[2021-01-09] MEDS: REMDESIVIR 100 MG in 0.9 % SODIUM CHLORIDE 250 ML IV SCH (15:25)
[2021-01-09] MEDS: DULoxetine 30 MG CAPSULE PO SCH (20:00)
[2021-01-09] MEDS: ZOLPIDEM 5 MG TABLET PO SCH (21:11)
[2021-01-10] MEDS: 0.9 % SODIUM CHLORIDE 10 ML SYRINGE IV SCH (05:00)
[2021-01-10 07:49] LABS: Basophils # (Auto) 0 K/mcL (0.00-0.30); Basophils % (Auto) 0 % (0.0-2.0); Eosinophils # (Auto) 0 K/mcL (0.00-0.70); Eosinophils % (Auto) 0 % (0.0-7.0); Hematocrit 49.8 % (40.1-51.0); Hemoglobin 15.5 g/dL (13.7-17.5); Lymphocytes # (Auto) 0.29 K/mcL (1.50-4.80); Lymphocytes % (Auto) 8.3 % (15.5-49.0); Mean Cell Volume 86.8 fL (80.0-100.0); Mean Corpuscular HGB Conc 31.1 g/dL (31.0-36.0); Monocytes # (Auto) 0.29 K/mcL (0.10-0.90); Monocytes % (Auto) 8.3 % (1.0-12.0); Neutrophils % (Auto) 83.4 % (38.0-78.0); Platelet Count 93 K/mcL (140-440); RBC 5.74 M/mcL (4.63-6.08); Red Cell Distribution Width 16.9 % (11.5-14.5); WBC 3.5 K/mcL (4.5-11.0)
[2021-01-10 08:22] LABS: ALT/SGPT 41 U/L (<40); AST/SGOT 43 U/L (<40); Albumin 3.7 gm/dL (3.2-5.2); Albumin/Globulin Ratio 1.4 (1.0-2.3); Alkaline Phosphatase 99 U/L (39-117); Bilirubin,Total 0.5 mg/dL (0.1-1.0); Blood Urea Nitrogen 20 mg/dL (6-20); Calcium 8.5 mg/dL (8.6-10.4); Carbon Dioxide 23 mmol/L (22-30); Chloride 102 mmol/L (96-108); Globulin 2.6 gm/dL (2.2-3.7); Glomerular Filtration Rate 89; Glucose 97 mg/dL (70-105)
[2021-01-10] MEDS: PREGABALIN 75 MG CAPSULE PO SCH (08:28)
[2021-01-10] MEDS: risperiDONE 1 MG TABLET PO SCH ×2 (08:28→11:57)
[2021-01-10] MEDS: ALLOPURINOL 300 MG TABLET PO SCH (08:28)
[2021-01-10] MEDS: OMEPRAZOLE 20 MG CAPSULE PO SCH (08:28)
[2021-01-10] MEDS: ENOXAPARIN 40 MG/0.4 ML SYRINGE SQ SCH (08:28)
[2021-01-10] MEDS: AMITRIPTYLINE 25 MG TABLET PO SCH (08:28)
[2021-01-10] MEDS: DEXAMETHASONE 4 MG TABLET PO SCH (08:28)
[2021-01-10] MEDS: METHYLPHENIDATE HCL 36 MG PO SCH (08:29)
[2021-01-10] MEDS ORDERED: guaiFENesin/DEXTROMETHORPHAN ORAL SOL PO PRN (08:46)
--- NOTE | 2021-01-10 12:40 | Discharge Summary ---
Discharge Provider Provider Patient information: Note initiated : 01/10/21 at 12:38 pm Service Date, if different from initiated Date: [] Patient: Raleigh Grant 45 y/o M admitted on 01/07/21 for SOB, covid exposure. Chief Complaint: [CoVID pneumonia] Date of admission: 01/07/21 23:45 Discharge date: 01/10/21 Primary care physician: Ricarda Aviles Consults: 01/07/21 Consult to Physician [CONS] Stat Comment: Consulting Provider: Quang Shepard Reason For Exam: Physician to Consult Discharge Meds Discharge Medications Home Medications eszopiclone 3 mg tablet 3 mg PO QHS 05/30/15 [History Confirmed 01/07/21 Last Taken 01/06/21 21:00] omega-3 fatty acids 1,000 mg capsule 1,000 mg PO QDAY 05/30/15 [History Confirmed 01/07/21 Last Taken 01/07/21 09:00] duloxetine 90 mg PO QHS 11/02/15 [History Confirmed 01/07/21 Last Taken 01/06/21 21:00] cholecalciferol (vitamin D3) 50 mcg (2,000 unit) capsule 2,000 unit PO QDAY 03/10/18 [History Confirmed 01/07/21 Last Taken 01/07/21 09:00] omeprazole 20 mg tablet,delayed release 20 mg PO QDAY 07/23/18 [History Confirmed 01/07/21 Last Taken 01/07/21 09:00] pregabalin 150 mg capsule 225 mg PO BID 08/11/18 [History Confirmed 01/08/21 Last Taken 01/07/21 09:00] alendronate 70 mg tablet 70 mg PO QWEEK #14 tab 12/25/18 [Rx Confirmed 01/07/21 Last Taken 01/01/21 09:00] risperidone 0.5 mg tablet 0.5 mg PO QHS 05/26/19 [History Confirmed 01/08/21 Last Taken 01/06/21 21:00] risperidone 0.5 mg tablet 1 mg PO BID tab 05/26/19 [History Confirmed 01/08/21 Last Taken 01/07/21 11:00] allopurinol 300 mg PO QDAY 01/07/21 [History Confirmed 01/07/21 Last Taken 01/07 09:00] amitriptyline 25 mg PO BID 01/07/21 [History Confirmed 01/07/21 Last Taken 01/07/21 09:00] hydrocodone-acetaminophen 1 tab PO TID 01/07/21 [History Confirmed 01/07/21 Last Taken 01/07/21 09:00] methylphenidate HCl [Concerta] 36 mg PO QAM 01/07/21 [History Confirmed 01/07/21 Last Taken 01/07/21 09:00] prednisone 10 mg PO QDAY 01/07/21 [History Confirmed 01/07/21 Last Taken 01/07/21 09:00] dextromethorphan-guaifenesin [Robafen DM Cough] 10 ml PO Q4HP PRN 10 Days ml 01/10/21 [Rx Last Taken Unknown] COURSE Hospital Course Hospital course: History of present illness: Mr. 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 felt better but then recently started feeling worse and developing fever. Also had chills. Denies dysuria but did not have that last time either. May be prostatitis and the longer course of antibiotic and follow-up with urology. UA was consistent with infection. Concern in the ED for sepsis. Chest x-ray was unremarkable for acute but showed stable chronic bronchitis . Covid test was negative in the ED. Complain of feeling wheezy. 9/6 Patient feeling better today. Still feels weak but overall improved. Leukocytosis improving. Mildly low potassium. No wheezing today. Blood cultures gram-negative bacillus, urine culture pending Discharge diagnosis: CoVID pneumonia Time Spent with Patient Time attestation: Total time spent providing and/or coordinating discharge services: Patient was admitted on January 08, 2021 for Covid pneumonia. It is complicated by the fact that he has a history of sarcoidosis of his lung. Patient was started with supplemental oxygen, remdesivir, dexamethasone, as well as Lovenox for anticoagulations. On January 10, 2021, patient's oxygen requirement has been down to room air at rest and 2 L when ambulating. He has been afebrile for more than 24 hours and otherwise reached clinical stability's. The decision was thus made to discharge patient home with prescriptions of home oxygen. Instruction to follow with PCP in 1 to 2 weeks given to him. All questions were answered prior to patient being physically discharged. EXAM Constitutional Vitals: Temp Pulse Resp BP Pulse Ox 37.0 C 88 20 136/90 94 01/10/21 11:59 01/10/21 11:59 01/10/21 11:59 01/10/21 11:59 01/10/21 11:59 General appearance: cooperative and no acute distress Head Head exam: Present atraumatic and normocephalic Eye Eye exam: Present EOMI and PERRL ENT ENT exam: Present mucous membranes moist, normal exam and normal external ear exam Neck Neck exam: Present normal inspection; Absent lymphadenopathy, tenderness and thyromegaly Respiratory Respiratory exam: Absent accessory muscle use, respiratory distress and wheezes Cardiovascular Cardiovascular exam: Present normal rate and rhythm; Absent JVD GI/Abdominal GI/Abdominal exam: Present normal bowel sounds and soft; Absent organomegaly and tenderness Rectal Rectal exam: Present deferred Extremities Exam Extremities exam: Present full ROM, normal capillary refill and normal inspection; Absent tenderness Neurological Exam Neurological exam: Present alert, CN II-XII intact and oriented X3; Absent motor sensory deficit Psychiatric Psychiatric exam: Present normal affect and normal mood; Absent anxious and depressed Skin Skin exam: Present dry and intact Discharge Data Data Completed and Pending Labs on day of discharge: Labs from last 24 hours 01/10/21 01/10/21 06:08 06:08 WBC 3.5 L RBC 5.74 Hgb 15.5 Hct 49.8 MCV 86.8 MCH 27.0 MCHC 31.1 RDW 16.9 H Plt Count 93 L MPV Neut % (Auto) 83.4 H Lymph % (Auto) 8.3 L [place] % (Auto) 8.3 Eos % (Auto) 0 Baso % (Auto) 0 Lymph # (Auto) 0.29 L [place] # (Auto) 0.29 Eos # (Auto) 0 Baso # (Auto) 0 Absolute Neutrophils 2.90 Sodium 136 Potassium 3.9 Chloride 102 Carbon Dioxide 23 Anion Gap 11.0 BUN 20 Creatinine 1.0 GFR Calculation 89 Glucose 97 Calcium 8.5 L Total Bilirubin 0.5 AST 43 H ALT 41 H Alkaline Phosphatase 99 Total Protein 6.3 Albumin 3.7 Globulin 2.6 Albumin/Globulin Ratio 1.4 Preliminary micro results at discharge 01/07/21 20:18 Blood Culture - Preliminary Blood 01/07/21 19:56 Blood Culture - Preliminary Blood Discharge Plan Patient/Caregiver Discharge Instructions Activity: increase activity as tolerated Diet: Regular Diet Instructions: COVID-19, Using Oxygen at Home (GEN), Sarcoidosis (GEN), Hypoxia (GEN) Prescriptions: New dextromethorphan-guaifenesin [Robafen DM Cough] 10-100 mg/5 mL Liquid 10 ml PO Q4HP PRN (Reason: Cough) 10 Days RF: 0 Continued alendronate 70 mg tablet 70 mg PO QWEEK Qty: 14 RF: 3 omega-3 fatty acids 1,000 mg capsule 1,000 mg PO QDAY RF: 0 eszopiclone 3 mg tablet 3 mg PO QHS RF: 0 omeprazole 20 mg tablet,delayed release (DR/EC) 20 mg PO QDAY RF: 0 cholecalciferol (vitamin D3) 2,000 unit capsule 2,000 unit PO QDAY RF: 0 Lyrica 150 mg capsule 225 mg PO BID RF: 0 risperidone [Risperdal] 0.5 mg tablet 1 mg PO BID RF: 0 risperidone [Risperdal] 0.5 mg tablet 0.5 mg PO QHS RF: 0 duloxetine 60 MG capsule,delayed release(DR/EC) 90 mg PO QHS RF: 0 amitriptyline 25 mg Tablet 25 mg PO BID RF: 0 allopurinol 300 mg Tablet 300 mg PO QDAY RF: 0 methylphenidate HCl [Concerta] 36 mg Tablet Extended Release 24hr 36 mg PO QAM RF: 0 prednisone 10 mg tablet 10 mg PO QDAY RF: 0 hydrocodone-acetaminophen 5-325 mg Tablet 1 tab PO TID RF: 0 Follow Up Plan Follow up with: Ricarda Aviles ARNP [Primary Care Provider] - 01/24/21 1:15 pm Patient Disposition: Home, Self-Care Prognosis: Fair Rehab Potential: Good I certify that the patient requires SNF services: No Overall status at discharge: patient is progressing back to baseline Discharge Orders: Discharge Order (Routine); Ordered 01/10/21 Ordered By: Smith RAY VTE Deep Vein Thrombosis/Pulmonary Embolism Present on Admission: No
--- NOTE | 2021-01-10 16:37 | EKG ---
[facility] Test Date: 2021-01-07 Pat Name: Raleigh Grant Department: ED Room: Gender: Male [employer]uling [employer]: aw : 1975 Requested By: Elliot Kelly Order Number: [id number] Reading MD: Wellington Mclean Measurements Intervals [place] Rate: 98 P: 20 [place]: 170 QRS: 45 QRSD: 89 T: -5 QT: 306 QTc: 391 Interpretive Statements Sinus rhythm LAE, consider biatrial enlargement Abnormal R-wave progression, late transition Electronically Signed On 01-10-2021 16:37:23 PDT by Wellington Mclean /store/M0/[id number]
== END 2021-01-10 14:04 | disposition home or self-care (01) | DRG 177 ==
LOC: ED 19:27 → ICU 23:45
PROVIDERS: ADMIT Internal Medicine; ATTEND Internal Medicine